=== PATIENT | male | born 1960 | race Caucasian/White ===

== ENCOUNTER 2021-02-11 05:51 | Day surgery (SDC) | payer MEDICAID, SELFPAY ==
[~2021-02-11] VITALS: Ht 167.6 cm; Wt 68.9 kg
[2021-02-11] MEDS ORDERED: MIDAZOLAM HCL 5 MG/5 ML VIAL ONE ×2 (06:18→07:45)
[2021-02-11] MEDS ORDERED: SIMETHICONE 40 MG/0.6 ML ML ONE (06:18)
[2021-02-11] MEDS ORDERED: fentaNYL CITRATE/PF 100 MCG/2 ML AMP ONE (06:18)
[2021-02-11] MEDS ORDERED: MEPERIDINE 100 MG INJ. 100 MG/ML VIAL ONE (07:32)
[2021-02-11 13:44] VITALS: BP_SYST 144
== END 2021-02-11 09:10 | disposition home or self-care (01) ==
LOC: SDS 05:51 → SMU 06:19 → SDS 09:10
PROVIDERS: ATTEND Internal Medicine Gastroenterology
DX: Z12.11 Encounter for screening for malignant neoplasm of colon (principal); K64.4 Residual hemorrhoidal skin tags; K52.9 Noninfective gastroenteritis and colitis, unspecified; K70.30 Alcoholic cirrhosis of liver without ascites; K92.0 Hematemesis; Z79.899 Other long term (current) drug therapy
CPT/HCPCS: 36415; 45380; 87426; 88305; G0378; J2175; J2250; J3010